=== PATIENT | female | born 1970 | race Caucasian/White ===

== ENCOUNTER 2019-10-06 17:27 | Emergency (ER) | payer OTHER ==
[~2019-10-06] VITALS: Ht 157.5 cm; Wt 119.7 kg
[2019-10-06 17:45] VITALS: Ht 157.5 cm; Wt 119.7 kg
[2019-10-06 19:45] LABS: BASOPHIL % 0.3 % (0-2); PLATELET COUNT 346 x10^3mcL (130-400); RED CELL DISTRIBUTION WIDTH 14.6 % (11.5-14.5)
[2019-10-06 19:51] LABS: CALCIUM 8.7 mg/dL (8.5-10.1); CARBON DIOXIDE 35.9 mmol/L (21-32); CHLORIDE SERUM 105 mmol/L (98-107); CREATININE SERUM 0.9 mg/dL (0.6-1.0); GFR1 > 60 mL/min; GLUCOSE SERUM 94 mg/dL (74-106); POTASSIUM SERUM 4.2 mmol/L (3.5-5.1); SODIUM SERUM 145 mmol/L (136-145)
[2019-10-06 19:55] LABS: ALKALINE PHOSPHATASE 80 U/L (46-116); ALT/SGPT 25 U/L (14-59); AST/SGOT 17 U/L (15-37); BILIRUBIN TOTAL 0.2 mg/dL (0.20-1.00); TOTAL PROTEIN, SERUM 7.6 g/dL (6.4-8.2)
[2019-10-06 19:59] LABS: ALBUMIN 3.2 g/dL (3.4-5.0)
[2019-10-07 00:32] VITALS: BP 111/88
== END 2019-10-07 00:32 | disposition home or self-care (01) ==
LOC: ED 17:27
PROVIDERS: Emergency Medicine
DX: J44.1 Chronic obstructive pulmonary disease with (acute) exacerbation (principal); M71.21 Synovial cyst of popliteal space [Baker], right knee
CPT/HCPCS: 83880; 87804; J1200; J2930; Q0092; Q9967

== ENCOUNTER 2019-11-08 18:11 | Emergency (ER) | payer OTHER ==
[~2019-11-08] VITALS: Ht 157.5 cm; Wt 113.4 kg
[2019-11-08 18:25] VITALS: Ht 157.5 cm; Wt 113.4 kg
[2019-11-08 20:56] VITALS: BP 155/69
== END 2019-11-08 20:56 | disposition home or self-care (01) ==
LOC: ED 18:11
DX: M19.90 Unspecified osteoarthritis, unspecified site (principal); M25.461 Effusion, right knee; I10 Essential (primary) hypertension
CPT/HCPCS: J1100; J1885; Q0092